=== PATIENT | female | born 1985 | race Two or more races ===

== ENCOUNTER 2017-12-23 15:09 | Emergency (ER) | payer SELFPAY ==
[~2017-12-23] VITALS: Ht 165.1 cm; Wt 145.1 kg
[2017-12-23] MEDS ORDERED: ONDANSETRON 4 MG/2 ML VIAL IM ONE (15:30)
[2017-12-23] MEDS ORDERED: MORPHINE SULFATE 4 MG/1 ML DISP.SYRIN IM ONE (15:30)
[2017-12-23] MEDS ORDERED: MORPHINE SULFATE 4 MG/1 ML DISP.SYRIN ONE (15:37)
[2017-12-23] MEDS ORDERED: ONDANSETRON 4 MG/2 ML VIAL ONE (15:38)
[2017-12-23 16:06] LABS: *URINE HCG, QUAL NEGATIVE (NEGATIVE)
[2017-12-23] MEDS ORDERED: HYDROCODONE/APAP 10-325 MG TABLET PO ONE (17:00)
[2017-12-23] MEDS ORDERED: HYDROCODONE/APAP 10-325 MG TABLET ONE (17:01)
--- NOTE | 2017-12-23 17:12 | NUR ---
MSE COMPLETED, PT D/C'D HOME, ACI/RX X1 GIVEN. PT AMBUULATED W/O DIFF/TOOK ALL BELIONGINGS.
[2017-12-23 17:20] VITALS: BP 120/71
== END 2017-12-23 17:21 | disposition home or self-care (01) ==
LOC: ER 15:12
DX: S16.1XXA Strain of muscle, fascia and tendon at neck level, initial encounter (principal); V03.99XA Pedestrian with other conveyance injured in collision with car, pick-up truck or van, unspecified whether traffic or nontraffic accident, initial encounter; Y93.89 Activity, other specified; Y92.410 Unspecified street and highway as the place of occurrence of the external cause; Y99.9 Unspecified external cause status
CPT/HCPCS: 70450; 72100; 72125; 84703; A4663; J2270; J2405